=== PATIENT | female | born 1985 | race Caucasian/White ===

== ENCOUNTER 2024-12-03 13:54 | Outpatient (CLI) | payer OTHER, SELFPAY ==
--- NOTE | ~2024-12-03 | US_ITS ---
EXAMINATION: US transvaginal DATE: 12/03/2024 14:52 INDICATION: Pelvic pain TECHNIQUE: Multiple transabdominal and endovaginal sonographic images of the pelvis were obtained. COMPARISON: None. FINDINGS: The uterus measures 7.9 x 5.2 x 6.3 cm. The endometrial complex measures 7-8 mm in thickness. Small anechoic nabothian cysts at the cervix measuring up to 5 mm. The right ovary measures 3.4 x 2.9 x 1.7 cm. 1.6 cm anechoic right ovarian cyst/follicle. Vascular flow with arterial and venous waveforms at the right ovary. Left ovary is not visualized and reportedly surgically absent. Trace amount of like ly physiologic anechoic free fluid in the pelvis. IMPRESSION: 1. Status post left oophorectomy. Otherwise unremarkable pelvic ultrasound with trace amount of likel y physiologic free fluid in the pelvis. Reviewed, dictated and finalized at location A. IMPRESSION: 1. Status post left oophorectomy. Otherwise unremarkable pelvic ultrasound with trace amount of likely physiologic free fluid in the pelvis.
--- OUTSIDE RECORDS SUMMARY | 2024-12-03 14:13 | XMS_ITS | Clinical Summary ---
Author Organization [facility] Address [address] [place] [address] Care Team Providers Care Stone Setter Apprentice Name Role Phone Lucas Gardner MD Primary Care Provider [phone] Source Comments [facility],non-owned Affiliates and Associated Physician Practices is amultiple site organization consisting of ambulatory clinics and hospital sitesin [place], [place], [place] and [place]. This disclosure is being madepursuant to the Care Everywhere program and may not contain all information available regarding this patient. Last updated 18.[facility] Allergies Active Allergy Reactions Criticality Noted Date Comments Nsaids 11/25/2008 Throat swelling Sulfa Drugs 11/25/2008 rash Medications * Be aware that medications may not be up to date on this document. Alwaysverify current medications with the patient. Vit-Fe Fumarate-FA ( VITAMIN) 28-0.8 MG tablet Take 1 Tab by mouth once daily Active busPIRone (BUSPAR) 5 MG tablet Take 7.5 mg by mouth once daily Active sertraline (ZOLOFT) 50 MG tablet Take 75 mg by mouth once daily Active diphenhydrAMINE (BENADRYL) 25 MG tablet Take 50 mg by mouth every 6 hours as needed for Itching Active docusate sodium (COLACE) 100 MG capsule Take 1 Cap by mouth 2 times daily 60 Cap 5 03/24/2015 Active Vit-Fe Fumarate-FA ( VITAMIN) 28-0.8 MG tablet Take 1 Tab by mouth once daily 30 Tab 11 03/24/2015 Active oxyCODONE-aceta minophen (PERCOCET) 5-325 MG tablet Take 1 Tab by mouth every 6 hours as needed for Pain 30 Tab 0 03/24/2015 Active Active Problems Problem Noted Date Diagnosed Date Abdominal pain 11/02/2014 Supervision of normal first 10/30/2014 Endometriosis 10/10/2009 Pelvic pain 10/10/2009 Urinary incontinence, post-void dribbling 2009 Encounter for supervision of normal first in third trimester examination following vaginal deliver y Immunizations Immunization Administration Dates Next Due TDAP (7yrs+) 01/14/2015 Family History Medical History Relation Name Comments Cancer Father prostate Diabetes Father Cancer Maternal Grandmother Breast, lymphoma Hypertension Mother Relation Name Status Comments Father Maternal Grandmother Mother Social History Tobacco Use Types Packs/Day Years Used Date Smoking Tobacco: Never Smokeless Tobacco: Never Tobacco Cessation:Counseling Given: No Alcohol Use Standard Drinks/Week Comments Yes 0.8 (1 standard drink = 0.6 oz p ure alcohol) Comments No Sex and Gender Information Value Date Recorded Sex Assigned at Not on file Legal Sex Female 8:58 AM PICTURE PAINTER Gender Identity Not on file Sexual Orientation Not on file Last Filed Vital Signs Vital Sign Reading Time Taken Comments Blood Pressure 132/70 2015 11:32 AM PICTURE PAINTER Pulse 78 03/24/2015 8:15 AM PICTURE PAINTER Temperature 36.7 C (98 F) 03/24/2015 8:15 AM PICTURE PAINTER Respiratory Rate 15 03/24/2015 8:15 AM PICTURE PAINTER Oxygen Saturation 100% 03/24/2015 1:20 AM PICTURE PAINTER Inhaled Oxygen Concentration - - Weight 94.8 kg (209 lb) 2015 11:32 AM PICTURE PAINTER Height 170.2 cm (5' 7) 2015 11:32 AM PICTURE PAINTER Body Mass Index 32.73 2015 11:32 AM PICTURE PAINTER Plan of Treatment Health Maintenance Due Date Last Done Comments HIV SCREENING 2001 HEPATITIS C SCREENING 05/02/2004 HEPATITIS B VACCINE (1 of 3 - 19+ 3-dose series) 2005 HPV VACCINE (1 - 3-dose SCDM series) 2013 COVID-19 VACCINE (2023-2 5 season) 2024 DEPRESSION SCREENING 05/02/2024 INFLUENZA VACCINE (#1) 2024 02/10/2015 DTAP/TDAP/TD VACCINES (2 - T d or Tdap) 01/14/2025 01/14/2015 ZOSTER VACCINE (1 of 2) 2036 HIB VACCINE Aged Out No longer eligi ble based on patient's age to complete this topic MENINGOCOCCAL (Group B) VACC INE SHARED DECISION-MAKING Aged Out No longer eligibl e based on patient's age to complete this topic MENINGOCOCCAL GROUPS A/C/Y/W VACCINE Aged Out No longer eligible b ased on patient's age to complete this topic PNEUMOCOCCAL VACCINE Aged Out No long er eligible based on patient's age to complete this topic [place] [facility]: [address] [phone] Advance Directives * Full Code (Latest Code Status on File) Date Activated Date Inactivated Comments 03/21/2015 11:49 AM 03/24/2015 5:54 PM * Full Code Date Activated Date Inactivated Comments 03/21/2015 11:48 AM 03/21/2015 11:49 AM * Full Code Date Activated Date Inactivated Comments 01/08/2015 4:34 PM 01/08/2015 6:48 PM Care Teams Stone Setter Apprentice Relationship Specialty Start Date End Date Lucas Gardner MD PCP - General Internal Medicine 12/10/13
--- OUTSIDE RECORDS SUMMARY | 2024-12-03 14:13 | XMS_ITS | Clinical Summary ---
Author Organization [facility] Address [address] [place] [address] [place] [address] Care Team Providers Care Supervisor Burling And Joining Name Role Phone Juan Gr MD Primary Care Provider [phone] Allergies Active Allergy Reactions Criticality Noted Date Comments Nsaids (Non-Steroidal Anti-Inflammatory Drug) Shortness of Breath/Wheezing 11/25/2008 Throat swelling Sulfa (Sulfonamide Antibiotics) Itching 11/25/2008 rash Medications escitalopram oxalate (LEXAPRO) 20 mg tablet TK 1 T PO QD 7 09/20/2018 Active 28 mg iron- 800 mcg Tablet TK 1 T PO QD 1 08/27/2018 Active sertraline (ZOLOFT) 50 mg tablet Take 75 mg by mouth. Active Active Problems No known active problems Social History Tobacco Use Types Packs/Day Years Used Date Smoking Tobacco: Never Smokeless Tobacco: Never Comments No Sex and Gender Information Value Date Recorded Sex Assigned at Not on file Legal Sex Female 7:52 AM CDT Gender Identity Not on file Sexual Orientation Not on file Last Filed Vital Signs Vital Sign Reading Time Taken Comments Blood Pressure 110/77 11/09/2018 12:49 PM CDT Pulse 84 11/09/2018 12:49 PM CDT Temperature 37.1 C (98.7 F) 11/09/2018 12:49 PM CDT Respiratory Rate 18 11/09/2018 12:49 PM CDT Oxygen Saturation 99% 11/09/2018 12:49 PM CDT Inhaled Oxygen Concentration - - Weight 99.8 kg (220 lb) 11/09/2018 12:49 PM CDT Height 170.2 cm (5' 7) 11/09/2018 12:49 PM CDT Body Mass Index 34.46 11/09/2018 12:49 PM CDT Plan of Treatment Health Maintenance Due Date Last Done Comments HPV VACCINES (1 - 3-dose series) 2001 HEPATITIS B VACCINES (1 of 3 - 19+ 3-dose series) 09/2005 HPV/Cotest (21-29) 2007 CERVICAL CANCER SCREENING 2016 HPV/Cotest (30-65) 2016 PAP SMEAR 2016 INFLUENZA VACCINE (#1) 2024 DTAP/TDAP/TD VACCINES (2 - Td or Tdap) 01/14/2025 Insurance [facility] CHO[employer] PLUS Care Teams Supervisor Burling And Joining Relationship Specialty Start Date End Date Juan Gr MD [facility] [place] [address] PCP - General 11/09/18
== END 2024-12-03 13:55 | disposition home or self-care (01) ==
PROVIDERS: PCP Family Medicine
DX: N93.8 Other specified abnormal uterine and vaginal bleeding (principal); N80.00 Endometriosis of the uterus, unspecified; Z90.721 Acquired absence of ovaries, unilateral
CPT/HCPCS: 76830

== ENCOUNTER 2025-03-04 16:13 | Emergency (ER) | payer OTHER, SELFPAY ==
--- NOTE | ~2025-03-04 | XR_ITS ---
EXAMINATION: XR ankle RT min 3V, 03/04/2025 16:29 GROUND INTELLIGENCE OFFICER HISTORY: twisted ankle today. pain laterally COMPARISON: No comparisons available. Findings: No acute fracture or malalignment. No significant degenerative changes. Soft tissues unremarkable. Impression: No acute fracture or malalignment. Reviewed, dictated and finalized at location P. [place] INTELLIGENCE OFFICER Impression: No acute fracture or malalignment.
[2025-03-04 16:19] VITALS: BP 127/85; PULSE 91; RESP 16; TEMP 36.9; O2SAT 99
--- NOTE | 2025-03-04 16:46 | ED.LOWEXIN ---
HPI - Extremity Injury (Lower) General Chief Complaint: Extremity Injury, Lower Stated Complaint: R Ankle Pain Time Seen by Provider: 03/04/25 16:39 Source: patient and RN notes reviewed Mode of arrival: ambulatory Limitations: no limitations History of Present Illness HPI Narrative: 39-year-old female patient presents today with right lateral ankle pain and swelling. 30-40 minutes prior to arrival, patient was walking down 2 stairs at home when she tripped and twisted her ankle. Reports some tingling to the anterior ankle as well. No OTC treatment prior to arrival. 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 Related Data Home Medications ?Medication ?Instructions ?Recorded ?Confirmed ?Last Taken ?Type buspirone 7.5 mg tablet 7.5 mg PO BID 01/17/25 01/17/25 Unknown History cetirizine 10 mg tablet 10 mg PO DAILY 01/17/25 01/17/25 Unknown History escitalopram oxalate 10 mg tablet 10 mg PO DAILY 01/17/25 01/17/25 Unknown History magnesium oxide 400 mg PO DAILY 01/17/25 01/17/25 Unknown History omega 2-hsi-cfl-fish oil 60 mg-90 1 cap PO DAILY 01/17/25 01/17/25 Unknown History mg-500 mg capsule (Fish Oil) epinephrine 0.3 mg/0.3 mL 03/04/25 Unknown History injection, auto-injector Allergies Allergy/AdvReac Type Severity Reaction Status Date / Time aspirin Allergy Severe Anaphylaxis Verified 03/04/25 16:15 NSAIDS (Non-Steroidal Allergy Severe Anaphylactic Verified 03/04/25 16:15 Anti-Inflamma Shock Sulfa (Sulfonamide Allergy Unknown Itching Verified 03/04/25 16:15 Antibiotics) [facility] Past Medical History Medical History Urinary incontinence Night sweats Hot flashes Abnormal uterine bleeding Breast tenderness Miscarriage Endometriosis Surgical History Surgical History Hx of removal of ovary History of appendectomy History of endometrial ablation Family History Family History Father Diabetes mellitus Hypertension Social History Social History Smoking status: Never smoker Alcohol intake: former Substance use: current Do You Feel Safe in your Home?: Yes Lack of Transportation: No Lack of Food: Never True Current Housing: I Have Housing Concerned About Future Housing: No Difficulty Paying Gas/Electric Bills: No Difficulty Paying for Meds: No Currently Unemployed: No Education: Bachelor's Degree Difficulty w/ Childcare or Family Care: No Comments At time of signature, I have reviewed and agree with nursing past medical, surgical, social and family history unless otherwise noted. Please see nursing chart for further information. There is no relevant family history pertinent to the presenting complaint Exam Narrative: GENERAL: Well-appearing, well-nourished, and in no acute distress. HEAD: Normocephalic, atraumatic. EYES: EOMI. No redness or drainage. Conjunctivae normal. ENT: Mucous membranes pink and moist. NECK: Normal AROM. CHEST: No respiratory distress. EXTREMITIES: Right ankle: Mild swelling to the lateral ankle with tenderness to palpation. Tenderness extends anteriorly. No tenderness or swelling to the medial ankle. No tenderness to foot. Distal sensation intact. Capillary refill normal. Pedal pulse normal. Full range of motion of toes. Almost full P ROM of the ankle with increased pain. SKIN: Warm, dry, no rash. Capillary refill normal. Normal skin turgor. NEURO: No focal deficits. Alert and oriented x3. Gait steady. PSYCH: Normal affect. No signs of depression or anxiety. Course Course Level of Care: Express Care Visit Vital Signs Vital signs: Vital Signs Temperature 98.4 F 03/04/25 16:19 Pulse Rate 91 03/04/25 16:19 Respiratory Rate 16 03/04/25 16:19 Blood Pressure 127/85 03/04/25 16:19 Pulse Oximetry 99 03/04/25 16:19 Temperature 98.4 F 03/04/25 16:19 Pulse Rate 91 03/04/25 16:19 Respiratory Rate 16 03/04/25 16:19 Blood Pressure 127/85 03/04/25 16:19 Pulse Oximetry 99 03/04/25 16:19 Reviewed MDM - Extremity Injury (Lower) MDM Narrative Medical decision making narrative: 39-year-old female patient presents today with right lateral ankle pain and swelling. 30-40 minutes prior to arrival, patient was walking down 2 stairs at home when she tripped and twisted her ankle. Reports some tingling to the anterior ankle as well. No OTC treatment prior to arrival. 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 Upon exam, Mild swelling to the lateral ankle with tenderness to palpation. Tenderness extends anteriorly. No tenderness or swelling to the medial ankle. No tenderness to foot. Distal sensation intact. Capillary refill normal. Pedal pulse normal. Full range of motion of toes. Almost full P ROM of the ankle with increased pain. Ankle x-ray is negative. Mikael wrap applied. Recommend ice, elevation, tylenol, compression with PCP or orthopedic follow-up in 7-10 days if symptoms are not improving. Patient agrees with plan. Vital signs stable. Anticipatory guidance given. Differential Diagnosis Differential diagnosis: Likely ankle sprain and strain and ankle fracture Imaging Data Radiologist's impression: ITS Impressions Ankle X-Ray 03/04/25 16:39 Impression: No acute fracture or malalignment. Critical Care Time Critical Care Time Critical Care Time: No Discharge Plan Discharge Clinical Impression: Right ankle sprain Qualifiers: Encounter type: initial encounter Involved ligament of ankle: unspecified ligament Qualified Code(s): S93.401A - Sprain of unspecified ligament of right ankle, initial encounter Patient Disposition: Home Condition: Stable Instructions: Ankle Sprain (DC) Additional Instructions: Your x-ray is negative for fracture. Elevate and ice the ankle. Wear the Mikael wrap for comfort and compression. Take Tylenol for pain if needed. Follow-up with your PCP or orthopedics in 7-10 days if symptoms are not improving. Patient Language: Swedish Prescriptions: No Action epinephrine 0.3 mg/0.3 mL auto-injector cetirizine 10 mg tablet 10 mg PO DAILY buspirone 7.5 mg tablet 7.5 mg PO BID escitalopram oxalate 10 mg tablet 10 mg PO DAILY omega 7-kkd-mzr-fish oil [Fish Oil] 60-90-500 mg capsule 1 cap PO DAILY magnesium oxide 400 mg magnesium tablet 400 mg PO DAILY norethindrone-e.estradiol-iron [Blisovi Fe 05/21 (28)] 1 mg-20 mcg (21)/75 mg (7) tablet 1 tablet PO DAILY Qty: 84 1RF Follow-up/Referrals: Maile,Juan Lovell MD [Primary Care Provider, Unknown] Lazaro Villanueva MD [Physician, Orthopedics] Time of Disposition: 16:52
== END 2025-03-04 16:55 | disposition home or self-care (01) ==
PROVIDERS: Emergency Provider Nurse Practitioner; PCP Family Medicine
DX: S93.401A Sprain of unspecified ligament of right ankle, initial encounter (principal); X50.1XXA Overexertion from prolonged static or awkward postures, initial encounter; Y93.9 Activity, unspecified; N80.9 Endometriosis, unspecified
CPT/HCPCS: 73610; 99213; G0463